=== PATIENT | female | born 1980 | race Caucasian/White ===

== ENCOUNTER 2016-12-12 22:34 | Emergency (ER) | payer OTHER ==
[~2016-12-12] VITALS: Ht 157.5 cm; Wt 53.1 kg
[~2016-12-12 22:34] MED LIST: IBUP-1050 PO; OXYC-57 PO; PRENTAB26 PO
[2016-12-12 22:47] VITALS: BP 129/89; PULSE 79; TEMP 36.6; O2SAT 96; Ht 157.5 cm; Wt 53.1 kg
[2016-12-12] MEDS ORDERED: RABIES VACCINE (IMOVAX) HUMAN DIPL CELL 2.5 INTER.UNIT/ML SYR IM. ONE (23:00)
[2016-12-12] MEDS ORDERED: LXP/10 PO (23:02)
--- NOTE | 2016-12-12 23:10 | EMERGENCY ROOM VISIT NOTE ---
History First contact with patient: 22:48 Chief Complaint: RABIES VACCINE Stated Complaint: EXPOSED TO RABIES, WC History of Present Illness The patient is a 36 year old female who presents to the Emergency Room for a rabies booster. 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 The kitten was initially evaluated last Friday, and became progressively more sick within the next few days. The kitten did test positive for rabies. The patient has already undergone a rabies preexposure prophylaxis series. Review of Systems 10 system review was performed and was negative except for pertinent positives and negatives as indicated in history of present illness Past Medical/Surgical History Medical Problems: (1) Anxiety State Nos (2) Tachycardia Nos Surgical Problems: (1) History of section (2) History of wisdom tooth extraction Family History FH: cancer FH: gallbladder disease FH: heart disease FH: hypertension Social History Smoking Status: Never Smoker Alcohol Use: occasionally Marital Status: Housing Status: lives with family Occupation Status: employed Current/Historical Medications Scheduled Escitalopram Oxalate (Lexapro), 10 MG PO DAILY Allergies Coded Allergies: No Known Allergies (Verified , 12/12/16) Physical Exam Vital Signs Date Time Temp Pulse Resp B/P (MAP) Pulse Ox O2 Delivery O2 Flow Rate FiO2 12/12/16 22:47 36.6 79 18 129/89 96 Room Air Physical Exam CONSTITUTIONAL: Healthy and well nourished. HEENT: Normocephalic, atraumatic. No scleral icterus or conjunctival injection. INTEGUMENTARY: No rash or other significant dermatologic conditions noted. NEUROLOGIC: No focal neurologic deficits noted. Medical Decision & Procedures Medications Administered Medications (Trade) Dose Ordered Sig/Vlad Route Start Time Stop Time Status Last Admin Dose Admin Rabies Vaccine Human Diploid Cell (Imovax Rabies) 2.5 interunit ONCE ONCE IM. 12/12/16 23:00 12/12/16 23:01 DC 12/12/16 23:00 2.5 INTERUNIT ED Course Patient history and physical exam were performed. Nurse's notes were reviewed. Vital signs were reviewed and were normal. The patient was administered Imovax IM. The patient will return in 4 days for her next injection. The patient reports that she will be out of town on Friday, and because it is late in the day today, I explained that she may return on Fred. The patient was happy with plan of care, and voiced understanding of all discharge instructions. Medical Decision Impression Primary Impression: Need for prophylactic vaccination against rabies Departure Information Dispostion Home / Self-Care Forms HOME CARE DOCUMENTATION FORM, IMPORTANT VISIT INFORMATION Patient Instructions My [facility] Additional Instructions Return on Mon 12/16 for your final Imovax injection
== END 2016-12-12 23:08 | disposition home or self-care (01) ==
LOC: C.EDB 22:35 → C.EDC 23:08
DX: Z20.3 Contact with and (suspected) exposure to rabies (principal); Z23 Encounter for immunization; F41.9 Anxiety disorder, unspecified; Z80.9 Family history of malignant neoplasm, unspecified; Z82.49 Family history of ischemic heart disease and other diseases of the circulatory system; Z79.899 Other long term (current) drug therapy

== ENCOUNTER 2016-12-16 13:08 | Emergency (ER) | payer OTHER ==
[~2016-12-16] VITALS: Ht 157.5 cm; Wt 53.7 kg
[~2016-12-16 13:08] MED LIST changes: -IBUP-1050 PO; +LXP/10 PO; -OXYC-57 PO; -PRENTAB26 PO
[2016-12-16 13:12] VITALS: BP 113/68; PULSE 72; TEMP 36.7; O2SAT 97; Ht 157.5 cm; Wt 53.7 kg
[2016-12-16] MEDS ORDERED: RABIES VACCINE (IMOVAX) HUMAN DIPL CELL 2.5 INTER.UNIT/ML SYR IM. ONE (13:15)
[2016-12-16] MEDS ORDERED: BCPILLS PO (13:16)
--- NOTE | 2016-12-16 13:32 | EMERGENCY ROOM VISIT NOTE ---
ED Visit Note First contact with patient: 13:13 Patient here for her 2nd rabies vaccine. This is day 3 after being bitten. 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 Because of this, she does not need to come in for the typical 3rd and 4th vaccination administration as in the general population. Patient tolerated vaccine well; told to return to ER for any developing/new or worsening symptoms. Current/Historical Medications Scheduled Control Pills ( Control Pills), 1 TAB PO DAILY Escitalopram Oxalate (Lexapro), 10 MG PO DAILY Allergies Coded Allergies: No Known Allergies (Verified , 12/12/16) Vital Signs Date Time Temp Pulse Resp B/P (MAP) Pulse Ox O2 Delivery O2 Flow Rate FiO2 12/16/16 13:12 36.7 72 16 113/68 97 Room Air Medications Administered Medications (Trade) Dose Ordered Sig/Vlad Route Start Time Stop Time Status Last Admin Dose Admin Rabies Vaccine Human Diploid Cell (Imovax Rabies) 2.5 interunit ONCE ONCE IM. 12/16/16 13:15 12/16/16 13:17 DC 12/16/16 13:24 2.5 INTERUNIT Departure Information Impression Primary Impression: Rabies, need for prophylactic vaccination against Dispostion Home / Self-Care Condition GOOD Referrals Miko Smallwood M.D. (PCP) Patient Instructions My [facility]
== END 2016-12-16 13:47 | disposition home or self-care (01) ==
LOC: C.EDB 13:09 → C.EDD 13:47
DX: Z20.3 Contact with and (suspected) exposure to rabies (principal); Z23 Encounter for immunization; Z79.3 Long term (current) use of hormonal contraceptives; Z79.899 Other long term (current) drug therapy